=== PATIENT | female | born 1970 | race Caucasian/White ===

== ENCOUNTER → 2016-12-07 | Outpatient (CLI) | payer OTHER | END | disposition home or self-care (01) | LOC: CFH 12:16 | PROVIDERS: ATTEND Internal Medicine | DX: R92.2 Inconclusive mammogram (principal) | CPT/HCPCS: G0206-LT ==

== ENCOUNTER → 2016-12-14 | Outpatient (CLI) | payer OTHER | END | disposition home or self-care (01) | LOC: CFH 14:10 | PROVIDERS: ATTEND Nurse Practitioner Primary Care | DX: K59.00 Constipation, unspecified (principal); R10.9 Unspecified abdominal pain; R10.817 Generalized abdominal tenderness; E03.9 Hypothyroidism, unspecified; R53.83 Other fatigue; A69.20 Lyme disease, unspecified; R20.2 Paresthesia of skin; F51.01 Primary insomnia; L65.9 Nonscarring hair loss, unspecified; B96.0 Mycoplasma pneumoniae [M. pneumoniae] as the cause of diseases classified elsewhere | CPT/HCPCS: 74000 ==

== ENCOUNTER → 2017-01-03 | Outpatient (CLI) | payer OTHER | END | disposition home or self-care (01) | LOC: CFH 08:46 | PROVIDERS: ATTEND Nurse Practitioner Primary Care | DX: R92.2 Inconclusive mammogram (principal) | CPT/HCPCS: 76377; 76642 ==

== ENCOUNTER → 2017-01-05 | Outpatient (CLI) | payer OTHER | END | disposition home or self-care (01) | LOC: CFH 14:32 | PROVIDERS: ATTEND Nurse Practitioner Primary Care | DX: I34.0 Nonrheumatic mitral (valve) insufficiency (principal); I37.1 Nonrheumatic pulmonary valve insufficiency; E03.9 Hypothyroidism, unspecified; F06.31 Mood disorder due to known physiological condition with depressive features | CPT/HCPCS: 93306 ==

== ENCOUNTER → 2017-08-29 | Outpatient (CLI) | payer OTHER | END | disposition home or self-care (01) | LOC: CFH 13:20 | PROVIDERS: ATTEND Obstetrics & Gynecology Female Pelvic Medicine and Reconstructive Surgery | DX: N63.11 Unspecified lump in the right breast, upper outer quadrant (principal); Q83.1 Accessory breast | CPT/HCPCS: 76641; G0206 ==

== ENCOUNTER → 2017-11-14 | Outpatient (CLI) | payer OTHER ==
[~2017-11-14] MED LIST: OMNIPAQUE 350 MG/ML, 75ML BOTTLE ONE
== END | disposition home or self-care (01) ==
LOC: CFH 10:34
PROVIDERS: ATTEND Nurse Practitioner Primary Care
DX: R07.9 Chest pain, unspecified (principal); R53.83 Other fatigue; A69.20 Lyme disease, unspecified; E03.9 Hypothyroidism, unspecified; R20.2 Paresthesia of skin; F51.01 Primary insomnia; F06.31 Mood disorder due to known physiological condition with depressive features; R10.817 Generalized abdominal tenderness; L65.9 Nonscarring hair loss, unspecified; K59.00 Constipation, unspecified; R01.1 Cardiac murmur, unspecified; N39.0 Urinary tract infection, site not specified; R59.0 Localized enlarged lymph nodes; D68.8 Other specified coagulation defects; Z79.899 Other long term (current) drug therapy
CPT/HCPCS: 71260; Q9967

== ENCOUNTER 2018-09-20 12:30 | Outpatient (CLI) | payer OTHER ==
[2018-09-20] MEDS ORDERED: GADOBUTROL 7.5 MMOL/7.5 ML VIAL ONE (13:57)
== END 2018-09-20 23:59 | disposition home or self-care (01) ==
LOC: CFH 12:30
PROVIDERS: ATTEND Obstetrics & Gynecology Gynecology
DX: R92.2 Inconclusive mammogram (principal); Z80.3 Family history of malignant neoplasm of breast
CPT/HCPCS: 77049; A9585